=== PATIENT | female | born 1975 | race Caucasian/White ===

== ENCOUNTER 2019-07-04 13:38 | Emergency (ER) | payer OTHER ==
[2019-07-04 16:04] LABS: Absolute Lymphocytes (CBC) 1.4 K/uL (0.7-4.9); Basophils % 0.3 % (0-1.3); Hematocrit 32.7 % (36.0-45.0); Lymphocytes % 23.1 % (15.3-44.8); MPV 8.1 fL (7.6-11.3); RBC Red Blood Cell Count 4.23 M/uL (3.86-4.86)
--- NOTE | 2019-07-04 16:27 | RAD REPORT ---
EXAM DESCRIPTION: RAD - Chest Pa And Lat (2 Views) - 07/04/2019 2:41 pm CLINICAL HISTORY: COUGH, fever COMPARISON: None. TECHNIQUE: PA and lateral views of the chest were obtained. FINDINGS: The lungs are clear. Left subclavian Port-A-Cath in place. Heart size is normal and centr al vasculature is within normal limits. No pleural effusion or pneumothorax seen. No acute bony fin ding noted. No aortic abnormality. IMPRESSION: No acute cardiopulmonary process.
[2019-07-04 16:28] LABS: ALT/SGPT 16 U/L (12-78); AST/SGOT 15 U/L (15-37); Albumin 3.2 g/dL (3.4-5.0); Alkaline Phosphatase 67 U/L (45-117); BUN Blood Urea Nitrogen 5 mg/dL (7-18); Bicarbonate 29 mmol/L (21-32); Bilirubin Direct < 0.1 mg/dL (0-0.2); Bilirubin Total 0.2 mg/dL (0.2-1.0); Glucose Level 86 mg/dL (74-106); Lipase 118 U/L (73-393); Potassium 3.9 mmol/L (3.5-5.1); Protein, Total 7.1 g/dL (6.4-8.2); Sodium Level 142 mmol/L (136-145)
--- NOTE | 2019-07-04 16:44 | RAD REPORT ---
EXAM DESCRIPTION: RAD - Abdomen 1 View (KUB) - 07/04/2019 4:35 pm CLINICAL HISTORY: rule out bowel obstruction Cough, fever COMPARISON: No comparisons FINDINGS: Bowel gas pattern is non-specific. No obstruction, free air or pneumatosis. No suspicious calcifications. No significant bony findings IMPRESSION: Negative KUB examination.
--- NOTE | 2019-07-04 17:14 | EDPHYS ---
Physician Documentation [facility] Name: Cheyenne Christie Age: 43 yrs Sex: Female : 1975 Arrival Date: 07/04/2019 Time: 13:40 Bed 23 Private MD: ED Physician Delmar Nunez HPI: 07/04 15:42 This 43 yrs old Female presents to ER via Ambulatory with complaints of jmm Cough, Headache, L Side Pain. 15:42 The patient or guardian reports cough. Onset: The symptoms/episode began/occurred jmm gradually, 4 day(s) ago. Modifying factors: The symptoms are alleviated by nothing, the symptoms are aggravated by coughing. This is a 43 year old female with a history of bowel obstruction that presents to the ED with complaints of lower abdominal pain beginning yesterday. patient was diagnosed with a URI this past Friday and is concerned she may have an injury to her abdominal wall or have a bowel obstruction. Denies vomiting or change in bowels. . 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 - Social history:: Smoking status: Patient/guardian denies using tobacco. - Ebola Screening: : Patient denies travel to an Ebola-affected area in the 21 days before illness onset. ROS: 15:42 Constitutional: Negative for fever, chills, and weight loss, Cardiovascular: Negative jmm for chest pain, palpitations, and edema. 15:42 Respiratory: Positive for cough. 15:42 Abdomen/GI: Positive for abdominal pain. 15:42 All other systems are negative. Exam: 15:42 Constitutional: This is a well developed, well nourished patient who is awake, alert, jmm and in no acute distress. Head/Face: atraumatic. Eyes: EOMI, no conjunctival erythema appreciated ENT: Moist Mucus Membranes Neck: Trachea midline, Supple Chest/axilla: Normal chest wall appearance and motion. Cardiovascular: Regular rate and rhythm. No edema appreciated Respiratory: Normal respirations, no respiratory distress appreciated 15:42 Abdomen/GI: Inspection: abdomen appears normal, Bowel sounds: normal, Palpation: soft, moderate abdominal tenderness, in the left lower quadrant. 15:42 Back: ROM is normal. 15:42 Musculoskeletal/extremity: ROM: intact in all extremities. 15:42 Skin: Appearance: Color: normal in color. 15:42 Neuro: Orientation: is normal, Mentation: is normal, Memory: is normal. 15:42 Psych: Behavior/mood is pleasant, cooperative. Vital Signs: 14:21 BP 108 / 73; Pulse 79; Resp 16; Temp 98.7; Pulse Ox 98% on R/A; Weight 70.31 kg (R); aj1 Height 5 ft. 5 in. (165.10 cm) (R); 15:25 BP 107 / 66; Pulse 69; Resp 18; Pulse Ox 100% on R/A; mg2 17:00 BP 110 / 77; Pulse 71; Resp 18; Temp 98.2; Pulse Ox 100% on R/A; mg2 18:15 BP 109 / 71; Pulse 70; Resp 18; Temp 98.5; Pulse Ox 100% on R/A; Pain 0/10; mg2 14:21 Body Mass Index 25.79 (70.31 kg, 165.10 cm) aj1 MDM: 15:35 Patient medically screened. go 17:12 Data reviewed: vital signs, nurses notes. Counseling: I had a detailed discussion with shruti the patient and/or guardian regarding: the historical points, exam findings, and any diagnostic results supporting the discharge/admit diagnosis, radiology results, the need for outpatient follow up, to return to the emergency department if symptoms worsen or persist or if there are any questions or concerns that arise at home. ED course: Patient is alert and non toxic in appearance in the ED. Patient declined CT imaging. Patient was given strict return precautions. patient understood and agrees with the plan of care. . 07/04 15:41 Order name: Basic Metabolic Panel; Complete Time: 16:33 [facility] 07/04 15:41 Order name: CBC with Diff; Complete Time: 16:12 [facility] 07/04 14:23 Order name: Chest Pa And Lat (2 Views) XRAY; Complete Time: 16:33 [facility] 07/04 15:41 Order name: Creatinine for Radiology; Complete Time: 16:26 [facility] 07/04 15:41 Order name: Hepatic Function; Complete Time: 16:33 [facility] 07/04 15:41 Order name: Lipase; Complete Time: 16:33 [facility] 07/04 15:41 Order name: IV Saline Lock; Complete Time: 15:57 [facility] 07/04 15:41 Order name: Labs collected and sent; Complete Time: 15:57 [facility] 07/04 15:41 Order name: Urine Dipstick-Ancillary (obtain specimen); Complete Time: 18:15 [facility] 07/04 16:10 Order name: Abdomen 1 View (KUB) XRAY; Complete Time: 16:48 [facility] Administered Medications: No medications were administered Disposition: 18:34 Co-signature as Attending Physician, Delmar Nunez MD. rn Disposition: 07/04/19 17:13 Discharged to Home. Impression: Acute upper respiratory infection, unspecified, Generalized abdominal pain. - Condition is Stable. - Discharge Instructions: Abdominal Pain, Adult, Upper Respiratory Infection, Adult. - Medication Reconciliation Form, Thank You Letter, Antibiotic Education, Prescription Opioid Use form. - Follow up: Private Physician; When: 2 - 3 days; Reason: Recheck today's complaints, Continuance of care, Re-evaluation by your physician. Signatures: Dispatcher [employer] EDVA Kimmie Barker RN RN aj1 Freddie Dennison PA PA [facility] Delmar Nunez MD MD rn Gardose, Michele, RN RN mg2 Corrections: (The following items were deleted from the chart) 16:39 15:42 Abdomen Pelvis W Con+CT.RAD.BRZ ordered. [facility] 18:17 17:13 07/04/2019 17:13 Discharged to Home. Impression: Acute upper respiratory mg2 infection, unspecified; Generalized abdominal pain. Condition is Stable. Forms are Medication Reconciliation Form, Thank You Letter, Antibiotic Education, Prescription Opioid Use. Follow up: Private Physician; When: 2 - 3 days; Reason: Recheck today's complaints, Continuance of care, Re-evaluation by your physician. [facility]
--- NOTE | 2019-07-04 17:14 | ER ---
Nurse's Notes [facility] Name: Cheyenne Christie Age: 43 yrs Sex: Female : 1975 Arrival Date: 07/04/2019 Time: 13:40 Bed 23 Private MD: Diagnosis: Acute upper respiratory infection, unspecified;Generalized abdominal pain Presentation: 07/04 14:17 Presenting complaint: Patient states: "I went to the doctor on Friday and he said aj1 that I had a respiratory infection, and now everytime I cough I feel like something is stabbing me in the side" Patient reports productive cough, fever. Denies N/V/D. Patient reports that she was checked for both strep and flu at her doctors office and they were both negative. Transition of care: patient was not received from another setting of care. Onset of symptoms was 2018. Risk Assessment: Do you want to hurt yourself or someone else? Patient reports no desire to harm self or others. Initial Sepsis Screen: Does the patient meet any 2 criteria? No. Patient's initial sepsis screen is negative. Does the patient have a suspected source of infection? Yes: Productive cough/pneumonia. Care prior to arrival: None. 14:17 Method Of Arrival: Ambulatory [facility] 14:17 Acuity: WANDER 4 aj1 Triage Assessment: 14:21 Headache History: The patient has had previous headaches and this one is similar to aj1 previous episodes. General: Appears in no apparent distress. uncomfortable, Behavior is calm, cooperative, appropriate for age. Pain: Complains of pain in forehead Pain currently is 2 out of 10 on a pain scale. at worst was 10 out of 10 on a pain scale. Pain began one week ago Is intermittent, Also complains of no other associated symptoms. Neuro: Level of Consciousness is awake, alert, obeys commands, Oriented to person, place, time, situation, Reports headache. Cardiovascular: Patient's skin is warm and dry. Respiratory: Reports cough that is persistent Airway is patent Respiratory effort is even, unlabored, Respiratory pattern is regular, symmetrical. 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 - Social history:: Smoking status: Patient/guardian denies using tobacco. - Ebola Screening: : Patient denies travel to an Ebola-affected area in the 21 days before illness onset. Screenin:22 Abuse screen: Denies threats or abuse. Denies injuries from another. Nutritional mg2 screening: No deficits noted. Tuberculosis screening: No symptoms or risk factors identified. Fall Risk None identified. Assessment: 15:22 General: Appears in no apparent distress. comfortable, Behavior is calm, cooperative. mg2 Pain: Complains of pain in abdomen Pain does not radiate. Pain currently is 5 out of 10 on a pain scale. Quality of pain is described as aching, Pain began gradually, Is intermittent. Neuro: Level of Consciousness is awake, alert, obeys commands, Oriented to person, place, time, situation. Neuro: Reports headache. Cardiovascular: Capillary refill < 3 seconds Patient's skin is warm and dry. Respiratory: Reports cough that is Airway is patent Respiratory effort is even, unlabored, Respiratory pattern is regular, symmetrical. GI: Reports lower abdominal pain. : No signs and/or symptoms were reported regarding the genitourinary system. EENT: No signs and/or symptoms were reported regarding the EENT system. Derm: Skin is intact, is healthy with good turgor, Skin is pink, warm \\T\\ dry. normal. Musculoskeletal: Circulation, motion, and sensation intact. Capillary refill < 3 seconds. 16:15 Reassessment: patient refused ct scan because its expensive. provider informed. mg2 Vital Signs: 14:21 BP 108 / 73; Pulse 79; Resp 16; Temp 98.7; Pulse Ox 98% on R/A; Weight 70.31 kg (R); aj1 Height 5 ft. 5 in. (165.10 cm) (R); 15:25 BP 107 / 66; Pulse 69; Resp 18; Pulse Ox 100% on R/A; mg2 17:00 BP 110 / 77; Pulse 71; Resp 18; Temp 98.2; Pulse Ox 100% on R/A; mg2 18:15 BP 109 / 71; Pulse 70; Resp 18; Temp 98.5; Pulse Ox 100% on R/A; Pain 0/10; mg2 14:21 Body Mass Index 25.79 (70.31 kg, 165.10 cm) [facility] ED Course: 13:40 Patient arrived in ED. as 14:19 Triage completed. aj1 14:23 Arm band placed on Patient placed in waiting room. aj1 14:39 Chest Pa And Lat (2 Views) XRAY In Process Unspecified. EDMS 15:08 Damir Corcoran, RN is Primary Nurse. mg2 15:21 Freddie Dennison PA is PHCP. m 15:21 Delmar Nunez MD is Attending Physician. jmm 15:24 Patient has correct armband on for positive identification. Placed in gown. Call light mg2 in reach. Side rails up X 1. Pulse ox on. NIBP on. 15:24 No provider procedures requiring assistance completed. mg2 15:57 Initial lab(s) drawn, by me, sent to lab. Inserted saline lock: 20 gauge in right lt1 antecubital area, using aseptic technique. 16:36 Abdomen 1 View (KUB) XRAY In Process Unspecified. EDMS 18:16 IV discontinued, intact, bleeding controlled, No redness/swelling at site. Pressure mg2 dressing applied. Administered Medications: No medications were administered Outcome: 17:13 Discharge ordered by MD. [facility] 18:16 Discharged to home ambulatory. mg2 18:16 Condition: stable 18:16 Discharge instructions given to patient, Instructed on discharge instructions, follow up and referral plans. Demonstrated understanding of instructions, follow-up care. 18:17 Patient left the ED. mg2 Signatures: Dispatcher [employer] EDMS Kimmie Barker RN RN aj Freddie Dennison PA PA jmm Martinez, Amelia as Damir Corcoran, MITZY RN [facility] [place] Nighat Magana [facility]
[2019-07-04 18:44] LABS: Urine Blood NEGATIVE (NEG); Urine Glucose NEGATIVE (NEG); Urine Protein NEGATIVE (NEG); Urine Specific Gravity 1.025 (1.005-1.030)
[2019-07-04 18:58] VITALS: O2SAT 100
[2019-07-04 19:01] VITALS: BP 109/71; TEMP 98.5
== END 2019-07-04 18:17 | disposition home or self-care (01) ==
LOC: ER 13:38
DX: J06.9 Acute upper respiratory infection, unspecified (principal); R10.84 Generalized abdominal pain; Z88.2 Allergy status to sulfonamides; F90.9 Attention-deficit hyperactivity disorder, unspecified type; F41.9 Anxiety disorder, unspecified
CPT/HCPCS: 36415; 71046; 74018; 80048; 80076; 81003; 81025; 83690; 85025; 99284

== ENCOUNTER 2019-09-13 09:39 | Observation (INO) | payer OTHER ==
--- OUTSIDE RECORDS SUMMARY | 2019-09-13 09:41 | XMS REPORT ---
:1975 Author Organization e[employer] Care Team Providers Name Role Phone Shin Yu Provider Role Unavailable Allergies, Adverse Reactions, Alerts Substance Reaction Event Type Sulfa swelling Drug Allergy Neosporin burn Drug Allergy Problems Problem Type Condition Code Onset Dates Condition Status Assessment Anemia, unspecified type D64.9 Active Assessment Depression with anxiety F41.8 Active Assessment Hypothyroidism, unspecified type E03.9 Active Assessment Encounter for general adult medical Z00.00 Active examination without abnormal findings Assessment Psychophysiological insomnia F51.04 Active Assessment 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), predominantly inattentive type Assessment Chronic iron deficiency anemia D50.9 Active Problem Psychophysiological insomnia F51.04 Active Problem Anemia, unspecified type D64.9 Active Problem Depression with anxiety F41.8 Active Problem Chronic iron deficiency anemia D50.9 Active Problem Hypothyroidism, unspecified type E03.9 Active Problem 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), predominantly inattentive type Medications Medication Code Code Instructions Start End Status Dosage System Date Date Iron Sucrose [facility] [address]-63 20 MG/ML Active as Intravenous directed Trazodone HCl [facility] 13154521223 50 MG Orally March Active 1 tablet Once a day 17, at bedtime 2018 as needed Fluoxetine HCl [facility] 64625130878 40 MG Orally Active 1 capsule Once a day Adderall [facility] [address]-19 20 MG Orally Active 2 tablet Once a day Deferasirox [facility] 70425380622 125 MG Orally April 14Sep Active as bid 2018 Levothyroxine ND 83909336018 75 MCG Orally Active 1 tablet Sodium Once a day on an empty stomach in the morning HydrOXYzine HCl [facility] [address]-00 25 MG Orally Active 1 tablet Once a day as needed Belsomra ND 60738255153 10 MG Orally April 14, Active 1 tablet Once a day 2018 at bedtime as needed Results No Known Results Summary Purpose eClinicalWorks Submission
--- OUTSIDE RECORDS SUMMARY | 2019-09-13 09:41 | XMS REPORT ---
:1975 Author Organization [employer] Care Team Providers Name Role Phone Shin Yu Provider Role Unavailable Allergies, Adverse Reactions, Alerts Substance Reaction Event Type Sulfa swelling Drug Allergy Neosporin burn Drug Allergy Problems Problem Type Condition Code Onset Dates Condition Status Assessment Hypothyroidism, unspecified type E03.9 Active Assessment Attention deficit hyperactivity F90.0 Active [...] Start End Status Dosage System Date Date Fluoxetine HCl [facility] 15447696407 40 MG Orally Active 1 capsule Once a day Iron Sucrose [facility] [address]-93 20 MG/ML Apr Active as Intravenous 2018 Belsomra [facility] 02451921881 10 MG Orally April 14, Active 1 tablet Once a day 2018 at bedtime as needed Deferasirox ND 78413389919 125 MG Orally April 14Sep Active as bid 2018 HydrOXYzine HCl [facility] [address]-77 25 MG Orally Active 1 tablet Once a day as needed Ferrous ND 0 246 (28 Fe) MG May 06, Active as Gluconate Iron Orally 2018 directed Levothyroxine [facility] 52601270135 75 MCG Orally Active 1 tablet Sodium Once a day on an empty stomach in the morning Adderall [facility] [address]-12 20 MG Orally Active 2 tablet Once a day Results No Known Results Summary Purpose eClinicalWorks Submission
--- OUTSIDE RECORDS SUMMARY | 2019-09-13 09:41 | XMS REPORT ---
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
[2019-09-13 11:59] LABS: Absolute Lymphocytes (CBC) 1.4 K/uL (0.7-4.9); Basophils % 1.9 % (0-1.3); Lymphocytes % 36.5 % (15.3-44.8); MPV 8.1 fL (7.6-11.3); Protime INR 1.01; RBC Red Blood Cell Count 3.51 M/uL (3.86-4.86)
--- NOTE | 2019-09-13 12:24 | RAD REPORT ---
EXAM DESCRIPTION: Amy Single View09/13/2019 11:53 am CLINICAL HISTORY: cough COMPARISON: June 2019 FINDINGS: The lungs appear clear of acute infiltrate. The heart is normal size IMPRESSION: No acute abnormalities displayed
--- NOTE | 2019-09-13 12:28 | ER ---
Nurse's Notes [facility] Name: Cheyenne Christie Age: 43 yrs Sex: Female : 1975 Arrival Date: 09/13/2019 Time: 09:42 Bed 16 Private MD: Diagnosis: Anemia, unspecified;Gastrointestinal hemorrhage, unspecified-guaiactrace positive;Weakness;Dyspnea Presentation: 09/13 09:58 Presenting complaint: Patient states: was told to come to the ER for iron infusion by em her PA, reports shortness of breath and headache, denies chest pain, reports history of chronic anemia, also reports being allergic to an iron medication that made her joints swell up but does not remember the medication name. Transition of care: patient was not received from another setting of care. Onset of symptoms was September 13, 2019. Risk Assessment: Do you want to hurt yourself or someone else? Patient reports no desire to harm self or others. Initial Sepsis Screen: Does the patient meet any 2 criteria? No. Patient's initial sepsis screen is negative. Does the patient have a suspected source of infection? No. Patient's initial sepsis screen is negative. Care prior to arrival: None. 09:58 Method Of Arrival: Ambulatory em 10:04 Acuity: WANDER 3 ss Historical: - Allergies: 10:03 Neosporin Andrea To Go; em 10:03 Sulfa (Sulfonamide Antibiotics); em 13:38 sodium ferric gluconat-sucrose (swollen joints); em - PMHx: 10:03 ADD/ADHD; Anxiety; Depression; Anemia; em - PSHx: 10:03 colon resection; right wrist surgery; em - Immunization history:: Adult Immunizations up to date. - Social history:: Smoking status: Patient/guardian denies using tobacco. - Ebola Screening: : Patient negative for fever greater than or equal to 101.5 degrees Fahrenheit, and additional compatible Ebola Virus Disease symptoms Patient denies exposure to infectious person Patient denies travel to an Ebola-affected area in the 21 days before illness onset No symptoms or risks identified at this time. Screenin:58 Abuse screen: Denies threats or abuse. Nutritional screening: No deficits noted. em Tuberculosis screening: No symptoms or risk factors identified. Fall Risk None identified. Assessment: 09:58 General: Appears in no apparent distress. comfortable, Behavior is calm, cooperative, em Denies fever. Pain: Denies pain. Neuro: Level of Consciousness is awake, alert, obeys commands, Oriented to person, place, time, situation, Appropriate for age. Cardiovascular: Denies chest pain, Capillary refill < 3 seconds Patient's skin is warm and dry. Respiratory: Reports shortness of breath on exertion Airway is patent Respiratory effort is even, unlabored, Respiratory pattern is regular, symmetrical. Derm: Skin is intact, Skin is dry, Skin is pale. Musculoskeletal: Capillary refill < 3 seconds, Range of motion: intact in all extremities. 10:00 General: The previous assessment is accurate, call light remains within reach.. ss 11:00 Reassessment: Patient appears in no apparent distress at this time. respirations even em and unlabored, skin pale warm and dry, denies pain at this time. 12:47 Reassessment: Patient appears in no apparent distress at this time. Patient and/or em family updated on plan of care and expected duration. Pain level reassessed. Patient states symptoms have not improved. 14:59 Reassessment: Patient and/or family updated on plan of care and expected duration. Pain em level reassessed. hospitalist at bedside, respirations even and unlabored, skin pale warm and dry, denies pain at this time. 16:16 Reassessment: Patient appears in no apparent distress at this time. Patient and/or em family updated on plan of care and expected duration. Pain level reassessed. respirations even and unlabored, skin pale warm and dry, denies pain at this time. 17:20 Reassessment: Patient appears in no apparent distress at this time. Patient and/or em family updated on plan of care and expected duration. Pain level reassessed. wheeled to floor Patient denies pain at this time. Vital Signs: 10:03 BP 124 / 72; Pulse 80; Resp 18; Temp 98.4(O); Pulse Ox 100% on R/A; Weight 70.31 kg; em Height 5 ft. 5 in. (165.10 cm); Pain 0/10; 11:00 BP 125 / 60; Pulse 78; Resp 18; Pulse Ox 99% on R/A; em 13:35 BP 100 / 57; Pulse 73; Resp 18; Pulse Ox 100% on R/A; Pain 0/10; em 15:00 BP 107 / 64; Pulse 76; Resp 16; Pulse Ox 100% on R/A; Pain 0/10; em 17:17 BP 101 / 61; Pulse 81; Resp 18; Pulse Ox 99% on R/A; Pain 0/10; em 10:03 Body Mass Index 25.79 (70.31 kg, 165.10 cm) em ED Course: 09:42 Patient arrived in ED. mr 09:58 DandreChandan LVN is Primary Nurse. em 09:58 Patient has correct armband on for positive identification. Placed in gown. Bed in low em position. Call light in reach. Pulse ox on. NIBP on. 10:03 Arm band placed on. em 10:04 Triage completed. ss 10:10 Amado Drummond MD is Attending Physician. keke 11:26 EKG done, by polysomnographic tech. reviewed by Amado Drummond MD. at1 11:42 Accessed Port-a-Cath. Blood collected. using accessed w/ # 20 Silva needle, ,sterile ss technique, per hospital protocol. Clean \T\ dry. Good blood return. Flushes easily. Patient maintains SpO2 saturation greater than 95% on room air. 12:27 Naresh Zhou is Hospitalizing Provider. [facility] 16:27 Urine collected: clean catch specimen, clear. 3 17:18 No provider procedures requiring assistance completed. Patient admitted, IV remains in em place. Administered Medications: 13:11 Drug: ProTONIX 40 mg Route: IVP; Site: Port-a-cath; 13:31 Follow up: Response: No adverse reaction em Outcome: 12:28 Decision to Hospitalize by Provider. keke 17:18 Admitted to Med/surg accompanied by tech, family with patient, via wheelchair, room em 214, with chart, Report called to MITZY Snowden 17:18 Condition: good 17:18 Instructed on the need for admit, Demonstrated understanding of instructions. 17:21 Patient left the ED. em Signatures: Amado Drummond MD MD cha Rivera, Mary mr AmosChandan, VICE PRESIDENT & GENERAL MANAGER [employer] [place] VICE PRESIDENT & GENERAL MANAGER [employer] [place] [employer] em Lubna Chavarria RN RN Julia Puga, radiation engineer EKG Tat1 Maeve Aguirre 3
--- NOTE | 2019-09-13 12:29 | EDPHYS ---
Physician Documentation [facility] Name: Cheyenne Christie Age: 43 yrs Sex: Female : 1975 Arrival Date: 09/13/2019 Time: 09:42 Bed 16 Private MD: ED Physician Amado Drummond HPI: 09/13 12:25 This 43 yrs old Female presents to ER via Ambulatory with complaints of keke Abnormal Lab Results. 12:25 The patient presents to the emergency department unk. Onset: The symptoms/episode keke began/occurred 5 day(s) ago. Historical: - Allergies: 10:03 Neosporin Andrea To Go; em 10:03 Sulfa (Sulfonamide Antibiotics); em 13:38 sodium ferric gluconat-sucrose (swollen joints); em - PMHx: 10:03 ADD/ADHD; Anxiety; Depression; Anemia; em - PSHx: 10:03 colon resection; right wrist surgery; em - Immunization history:: Adult Immunizations up to date. - Social history:: Smoking status: Patient/guardian denies using tobacco. - Ebola Screening: : Patient negative for fever greater than or equal to 101.5 degrees Fahrenheit, and additional compatible Ebola Virus Disease symptoms Patient denies exposure to infectious person Patient denies travel to an Ebola-affected area in the 21 days before illness onset No symptoms or risks identified at this time. ROS: 12:25 Constitutional: Negative for fever, chills, and weight loss, Eyes: Negative for injury, keke pain, redness, and discharge, ENT: Negative for injury, pain, and discharge, Neck: Negative for injury, pain, and swelling, Cardiovascular: Negative for chest pain, palpitations, and edema, Respiratory: Negative for shortness of breath, cough, wheezing, and pleuritic chest pain, Abdomen/GI: Negative for abdominal pain, nausea, vomiting, diarrhea, and constipation, Back: Negative for injury and pain, : Negative for injury, bleeding, discharge, and swelling, MS/Extremity: Negative for injury and deformity, Neuro: Negative for headache, weakness, numbness, tingling, and seizure, Psych: Negative for depression, anxiety, suicide ideation, homicidal ideation, and hallucinations, Allergy/Immunology: Negative for hives, rash, and allergies, Endocrine: Negative for neck swelling, polydipsia, polyuria, polyphagia, and marked weight changes, Hematologic/Lymphatic: Negative for swollen nodes, abnormal bleeding, and unusual bruising. 12:25 Skin: Positive for pallor. Exam: 12:25 Constitutional: This is a well developed, well nourished patient who is awake, alert, keke and in no acute distress. Head/Face: Normocephalic, atraumatic. Eyes: Pupils equal round and reactive to light, extra-ocular motions intact. Lids and lashes normal. Conjunctiva and sclera are non-icteric and not injected. Cornea within normal limits. Periorbital areas with no swelling, redness, or edema. ENT: Nares patent. No nasal discharge, no septal abnormalities noted. Tympanic membranes are normal and external auditory canals are clear. Oropharynx with no redness, swelling, or masses, exudates, or evidence of obstruction, uvula midline. Mucous membranes moist. Neck: Trachea midline, no thyromegaly or masses palpated, and no cervical lymphadenopathy. Supple, full range of motion without nuchal rigidity, or vertebral point tenderness. No Meningismus. Chest/axilla: Normal chest wall appearance and motion. Nontender with no deformity. No lesions are appreciated. Cardiovascular: Regular rate and rhythm with a normal S1 and S2. No gallops, murmurs, or rubs. Normal PMI, no JVD. No pulse deficits. Respiratory: Lungs have equal breath sounds bilaterally, clear to auscultation and percussion. No rales, rhonchi or wheezes noted. No increased work of breathing, no retractions or nasal flaring. Abdomen/GI: Soft, non-tender, with normal bowel sounds. No distension or tympany. No guarding or rebound. No evidence of tenderness throughout. Back: No spinal tenderness. No costovertebral tenderness. Full range of motion. Skin: Warm, dry with normal turgor. Normal color with no rashes, no lesions, and no evidence of cellulitis. MS/ Extremity: Pulses equal, no cyanosis. Neurovascular intact. Full, normal range of motion. Neuro: Awake and alert, GCS 15, oriented to person, place, time, and situation. Cranial nerves II-XII grossly intact. Motor strength 5/5 in all extremities. Sensory grossly intact. Cerebellar exam normal. Normal gait. Psych: Awake, alert, with orientation to person, place and time. Behavior, mood, and affect are within normal limits. 12:25 Abdomen/GI: Rectal exam: rectal tone normal, Stool: guaiac positive, hemorrhoid(s), are not appreciated, mass, is not appreciated, swelling, is not appreciated, tenderness, is not appreciated, Liver: no appreciated palpable abnormalities, Hernia: not appreciated. Vital Signs: 10:03 BP 124 / 72; Pulse 80; Resp 18; Temp 98.4(O); Pulse Ox 100% on R/A; Weight 70.31 kg; em Height 5 ft. 5 in. (165.10 cm); Pain 0/10; 11:00 BP 125 / 60; Pulse 78; Resp 18; Pulse Ox 99% on R/A; em 13:35 BP 100 / 57; Pulse 73; Resp 18; Pulse Ox 100% on R/A; Pain 0/10; em 15:00 BP 107 / 64; Pulse 76; Resp 16; Pulse Ox 100% on R/A; Pain 0/10; em 17:17 BP 101 / 61; Pulse 81; Resp 18; Pulse Ox 99% on R/A; Pain 0/10; em 10:03 Body Mass Index 25.79 (70.31 kg, 165.10 cm) em MDM: 10:10 Patient medically screened. [facility] 12:25 Data reviewed: vital signs, nurses notes, lab test result(s), EKG, radiologic studies, keke plain films. 09/13 10:56 Order name: Basic Metabolic Panel [facility] 09/13 10:56 Order name: CBC with Diff [facility] 09/13 10:56 Order name: LFT's [facility] 09/13 10:56 Order name: Magnesium [facility] 09/13 10:56 Order name: NT PRO-BNP [facility] 09/13 10:56 Order name: PT-INR [facility] 09/13 10:56 Order name: Troponin (emerg Dept Use Only) [facility] 09/13 10:56 Order name: Type And Screen [facility] 09/13 10:56 Order name: Retic Count [facility] 09/13 10:56 Order name: Iron Level [facility] 09/13 10:56 Order name: Ferritin [facility] 09/13 10:56 Order name: Folic Acid,Serum (folate) [facility] 09/13 10:56 Order name: TIBC [facility] 09/13 10:56 Order name: B12 [facility] 09/13 12:02 Order name: CBC with Automated Diff; Complete Time: 12:12 [facility] 09/13 12:02 Order name: Retic Count; Complete Time: 12:12 [facility] 09/13 12:04 Order name: Protime (+INR); Complete Time: 12:12 [facility] 09/13 13:22 Order name: Type and Screen [facility] 09/13 13:27 Order name: Basic Metabolic Panel; Complete Time: 14:03 [facility] 09/13 13:27 Order name: Liver (Hepatic) Function; Complete Time: 14:03 [facility] 09/13 13:27 Order name: Troponin (Emerg Dept Use Only); Complete Time: 14:03 [facility] 09/13 13:27 Order name: NT PRO-BNP; Complete Time: 14:03 [facility] 09/13 13:27 Order name: Magnesium; Complete Time: 14:03 [facility] 09/13 13:27 Order name: Transferrin Sat/Iron Binding; Complete Time: 14:03 [facility] 09/13 13:27 Order name: Ferritin; Complete Time: 14:03 [facility] 09/13 13:27 Order name: Folic Acid, (Folate); Complete Time: 14:03 [facility] 09/13 13:27 Order name: Vitamin B12 Level; Complete Time: 14:03 [facility] 09/13 14:14 Order name: Bb Add On 09/13 16:31 Order name: Urine Dipstick--Ancillary (enter results) 09/13 16:31 Order name: Urine --Ancillary (enter results) 09/13 10:56 Order name: XRAY Chest (1 view) [facility] 09/13 10:56 Order name: EKG; Complete Time: 10:59 [facility] 09/13 10:56 Order name: Cardiac monitoring; Complete Time: 11:45 [facility] 09/13 10:56 Order name: EKG - Nurse/Tech; Complete Time: 11:43 [facility] 09/13 10:56 Order name: IV Saline Lock; Complete Time: 11:43 [facility] 09/13 10:56 Order name: Labs collected and sent; Complete Time: 11:45 [facility] 09/13 10:56 Order name: O2 Per Protocol; Complete Time: 11:43 [facility] 09/13 10:56 Order name: O2 Sat Monitoring; Complete Time: 11:43 [facility] 09/13 10:56 Order name: Urine Dipstick-Ancillary (obtain specimen); Complete Time: 16:27 keke 09/13 12:28 Order name: RAD; Complete Time: 14:03 EDMS Administered Medications: 13:11 Drug: ProTONIX 40 mg Route: IVP; Site: Port-a-cath; 13:31 Follow up: Response: No adverse reaction em Disposition: 09/13/19 12:28 Hospitalization ordered by Naresh Zhou for Inpatient Admission. Preliminary diagnosis are Anemia, unspecified, Gastrointestinal hemorrhage, unspecified - guaiactrace positive, Weakness, Dyspnea. - Bed requested for Telemetry/MedSurg (Inpatient). - Status is Inpatient Admission. em - Condition is Stable. - Problem is new. - Symptoms have improved. UTI on Admission? No Signatures: Dispatcher [employer] EDAmado Vega MD MD cha Munoz, Edgar, PROVIDER NETWORK MGR PROVIDER NETWORK MGR em Lubna Chavarria RN RN ss Aguilar, Jose, RN RN ja1 Corrections: (The following items were deleted from the chart) 12:29 12:28 Hospitalization Ordered by Naresh Zhou for Inpatient Admission. Preliminary [facility] diagnosis is Anemia, unspecified; Gastrointestinal hemorrhage, unspecified - guaiactrace positive. Bed requested for Telemetry/MedSurg (Inpatient). Status is Inpatient Admission. Condition is Stable. Problem is new. Symptoms have improved. UTI on Admission? No. keke 16:24 12:29 09/13/2019 12:28 Hospitalization Ordered by Naresh Zhou for Inpatient ja1 Admission. Preliminary diagnosis is Anemia, unspecified; Gastrointestinal hemorrhage, unspecified - guaiactrace positive; Weakness; Dyspnea. Bed requested for Telemetry/MedSurg (Inpatient). Status is Inpatient Admission. Condition is Stable. Problem is new. Symptoms have improved. UTI on Admission? No. keke 17:21 16:24 09/13/2019 12:28 Hospitalization Ordered by Naresh Zhou for Inpatient em Admission. Preliminary diagnosis is Anemia, unspecified; Gastrointestinal hemorrhage, unspecified - guaiactrace positive; Weakness; Dyspnea. Bed requested for Telemetry/MedSurg (Inpatient). Status is Inpatient Admission. Condition is Stable. Problem is new. Symptoms have improved. UTI on Admission? No. [email or web address]
[2019-09-13] MEDS ORDERED: SOD FERRIC GLUC COMPLX/SUCROSE 125 MG in NA CHLORIDE 0.9% 100 ML IV ONE (12:30)
[2019-09-13] MEDS ORDERED: PANTOPRAZOLE 40 MG INJ ONE (12:55)
[2019-09-13 13:26] LABS: ALT/SGPT 35 U/L (12-78); AST/SGOT 20 U/L (15-37); Albumin 3.1 g/dL (3.4-5.0); Alkaline Phosphatase 55 U/L (45-117); BUN Blood Urea Nitrogen 8 mg/dL (7-18); Bicarbonate 24 mmol/L (21-32); Bilirubin Direct < 0.1 mg/dL (0-0.2); Bilirubin Total 0.2 mg/dL (0.2-1.0); Ferritin 4.6 ng/mL (8-388); Folic Acid, (Folate) 4.9 ng/mL (3.1-17.5); Glucose Level 101 mg/dL (74-106); Magnesium 2.3 mg/dL (1.8-2.4); NT PRO-BNP 132 pg/mL (<125); Potassium 3.6 mmol/L (3.5-5.1); Protein, Total 6.4 g/dL (6.4-8.2); Sodium Level 141 mmol/L (136-145); Transferrin 267 mg/dL (200-360); Troponin (Emerg Dept Use Only) < 0.02 ng/mL (0.0-0.045)
[2019-09-13] MEDS ORDERED: NA CHLORIDE 0.9% 250 ML ONE (14:44)
--- NOTE | 2019-09-13 16:02 | EKG ---
Test Date: 2019-09-13 Test Time: 11:23:26 Motor Rebuilder: LUIS MEASUREMENT RESULTS: Intervals: Rate: 76 TX: 108 QRSD: 82 QT: 394 QTc: 443 [place]: P: 46 TX: 108 QRS: 54 T: 43 INTERPRETIVE STATEMENTS: Sinus rhythm with short [place] Otherwise normal ECG No previous ECG available for comparison Electronically Signed On 09-13-19 16:01:25 ADMISSIONS RN by Sreedhar Hurtado
[2019-09-13] MEDS ORDERED: ONDANSETRON 4 MG/2 ML VIAL IV PRN (17:22)
[2019-09-13] MEDS ORDERED: DIPHENHYDRAMINE 50 MG/ML VIAL IV ONE (17:22)
[2019-09-13] MEDS ORDERED: HYDROCORTISONE SUC 100 MG INJ IV ONE (17:22)
[2019-09-13] MEDS ORDERED: NA CHLORIDE 0.9% 250 ML IV SCH (17:22)
[2019-09-13] MEDS: NA CHLORIDE 0.9% 1,000 ML IV SCH (17:31)
[2019-09-13 18:02] VITALS: BMI 25.7
--- NOTE | 2019-09-13 18:12 | P.HP ---
Certification for Inpatient Patient admitted to: Observation With expected LOS: <2 Midnights Practitioner: I am a practitioner with admitting privileges, knowledge of patient current condition, hospital course, and medical plan of care. Services: Services provided to patient in accordance with Admission requirements found in Title 42 Section 412.3 of the Code of Federal Regulations Patient History Date of Service: 09/13/19 Reason for admission: Low hemoglobin and iron level. History of Present Illness: 43-year-old woman with prior history of bowel resection, history of chronic iron deficiency anemia, anxiety and depression presented to emergency department with a complaint of generalized weakness, fatigue and dyspnea on exertion. Patient stated her primary care provider referred her to the emergency department due to low blood iron levels. She has received IV iron infusions in the past. She has a left port-A-cath in place for iron infusions. She stated she has allergies to several brands of IV iron but has tolerated Injectafer in the past. She reports occasional blood-stained stools. She was Hemoccult-positive in the ED. Her last colonoscopy was 1 year after her bowel resection which was 2011. She states that the cause for her iron deficiency anemia has not been identified. Patient is placed in observation for further treatment of symptomatic anemia. Allergies ferrous gluconate Allergy (Verified 09/13/19 17:49) Anaphylaxis Sulfa (Sulfonamide Antibiotics) Allergy (Verified 09/13/19 17:01) Itching/Hives/Rash neosporin Allergy (Uncoded 09/13/19 17:49) Rash sulfa Allergy (Uncoded 09/13/19 17:01) Itching/Hives/Rash Home Medications: Amphet Asp/Amphet/D-Amphet [Adderall 30 mg Tablet] 40 mg PO DAILY 09/13/19 Cyanocobalamin (Vitamin B-12) [Cyanocobalamin Injection] 1,000 mcg IJ SEECOM Fluoxetine HCl [Prozac*] 40 mg PO DAILY 09/13/19 Levothyroxine Sodium 25 mcg PO [id number] 09/13/19 Trazodone [Desyrel*] 50 mg PO BEDTIME PRN 09/13/19 hydrOXYzine HCL [Atarax] 3 tab PO BEDTIME PRN 09/13/19 Pantoprazole [Protonix Tab] 40 mg PO DAILY #30 tab 09/14/19 - Past Medical/Surgical History Has patient received pneumonia vaccine in the past: Yes Diabetic: No -: ADD -: Anxiety -: Depression -: Chronic Anemia -: Bowel Obstruction -: Colon Resection in 2010 -: Right wrist sx - Family History Mother -: Heart disease, Hypertension, Diabetes, Cancer, Other (see notes) Notes: Heart Stents; Ovarian Cancer - Social History Smoking Status: Never smoker Alcohol use: No CD- Drugs: No Caffeine use: Yes Place of Residence: Home Review of Systems Other: General: No fever, no malaise, no unintentional weight loss. Eyes: No eye discharge, Respiratory: No cough, no shortness of breath. CVS: No chest pain. GI: No abdominal pain, no nausea no vomit, no constipation, no diarrhea. Genitourinary: No dysuria, no urinary frequency, no incontinence, no hematuria. Musculoskeletal: No joint pains, or joint swelling, no gait instability. Neurology: No headache, no asymmetric, weakness, no problem with swallowing. Except as documented, all other systems reviewed and negative. Physical Examination - Vital Signs Temperature: 98.3 F Blood Pressure: 101/55 Pulse: 69 Respirations: 16 Pulse Ox (%): 100 - Physical Exam General: Alert, In no apparent distress, Oriented x3 HEENT: Normocephalic, PERRLA, Mucous membr. moist/pink Neck: Supple, JVD not distended Respiratory: Clear to auscultation bilaterally, Normal air movement Cardiovascular: No edema, Normal pulses, Regular rate/rhythm, Normal S1 S2 Capillary refill: <2 Seconds Gastrointestinal: Normal bowel sounds, Soft and benign, No tenderness Musculoskeletal: No swelling Integumentary: No rashes Neurological: Normal speech, Normal strength at 5/5 x4 extr - Studies Laboratory Data (last 24 hrs) 09/13/19 11:37: PT 11.9, INR 1.01 09/13/19 11:37: WBC 3.9 L D, Hgb 7.9 L*, Hct 25.0 L, Plt Count 321 09/13/19 11:37: Sodium 141, Potassium 3.6, BUN 8, Creatinine 0.76, Glucose 101, Magnesium 2.3, Total Bilirubin 0.2, AST 20, ALT 35, Alkaline Phosphatase 55 Assessment and Plan - Problems (Diagnosis) (1) Symptomatic anemia Status: Acute (2) Iron deficiency Status: Chronic (3) GI bleed Status: Acute (4) Anxiety and depression Status: Chronic - Plan Placed under observation. Case discussed with Dr. Melo. Transfuse 1 unit PRBC for symptomatic anemia. Target hemoglobin >8. Consult to Gastroenterology placed. Outpatient EGD and colonoscopy recommended. Protonix. - Advance Directives Does patient have a Living Will: No Does patient have a Durable POA for Healthcare: No
[2019-09-13] MEDS ORDERED: SODIUM CHLORIDE 0.9% 10ML INJ IV PRN (18:16)
[2019-09-13] MEDS: PANTOPRAZOLE 40 MG INJ IVP SCH (20:52)
[2019-09-13] MEDS ORDERED: POTASSIUM CL SA 10 MEQ TAB PO ONE (22:00)
[2019-09-14 04:03] VITALS: O2SAT 98
[2019-09-14] MEDS: NA CHLORIDE 0.9% 1,000 ML IV SCH (05:30)
[2019-09-14 06:37] LABS: Absolute Lymphocytes (CBC) 0.8 K/uL (0.7-4.9); Hematocrit 30.6 % (36.0-45.0); Lymphocytes % 19.5 % (15.3-44.8); MPV 8.3 fL (7.6-11.3)
[2019-09-14 07:04] LABS: BUN Blood Urea Nitrogen 7 mg/dL (7-18); Bicarbonate 24 mmol/L (21-32); Glucose Level 113 mg/dL (74-106); Potassium 4.3 mmol/L (3.5-5.1); Sodium Level 141 mmol/L (136-145)
[2019-09-14] MEDS: PANTOPRAZOLE 40 MG INJ IVP SCH (08:30)
--- NOTE | 2019-09-14 13:27 | P.DS ---
Admission Date: 09/13/19 Discharge Date: 09/14/19 Disposition: ROUTINE DISCHARGE Discharge Condition: FAIR Reason for Admission: Low hemoglobin and iron level. - Problems (1) Symptomatic anemia Current Visit: Yes Status: Acute (2) Iron deficiency Current Visit: Yes Status: Chronic (3) GI bleed Current Visit: Yes Status: Acute (4) Anxiety and depression Current Visit: Yes Status: Chronic Brief History of Present Illness: 43-year-old woman with prior history of bowel resection, history of chronic iron deficiency anemia, anxiety and depression presented to emergency department with a complaint of generalized weakness, fatigue and dyspnea on exertion. Patient stated her primary care provider referred her to the emergency department due to low blood iron levels. She has received IV iron infusions in the past. She has a left port-A-cath in place for iron infusions. She stated she has allergies to several brands of IV iron but has tolerated Injectafer in the past. She reports occasional blood-stained stools. She was Hemoccult-positive in the ED. Her last colonoscopy was 1 year after her bowel resection which was 2011. She states that the cause for her iron deficiency anemia was not identified. Patient was placed in observation for further treatment of symptomatic anemia. Hospital Course: She was given 2 units PRBC transfusion which brought the hemoglobin up to 10. She feels her symptoms have improved after the blood transfusion. She was evaluated by gastroenterology Dr. Melo recommended small-bowel follow- through to assess how much bowel she has after her bowel resection for bowel obstruction years ago. Patient could not drinking the contrast at this time requested the procedure to be done as an outpatient. Dr. Esqueda has agreed to see patient in the office in the office for arrangement for small-bowel follow- through, EGD and colonoscopy. She is also informed to follow with her PCP for arrangement for IV iron therapy. Vital Signs/Physical Exam: Temp Pulse Resp BP Pulse Ox 98.8 F 77 17 98/58 L 98 09/14/19 12:00 09/14/19 12:00 09/14/19 12:00 09/14/19 12:00 09/14/19 12:00 General: Alert, In no apparent distress, Oriented x3 Respiratory: Clear to auscultation bilaterally, Normal air movement Cardiovascular: Regular rate/rhythm, Normal S1 S2 Gastrointestinal: Soft and benign, Non-distended, No tenderness Laboratory Data at Discharge: WBC 4.1 K/uL (4.3-10.9) L 09/14/19 06:18 Hgb 10.0 g/dL (12.0-15.0) L 09/14/19 06:18 Hct 30.6 % (36.0-45.0) L D 09/14/19 06:18 Plt Count 291 K/uL (152-406) 09/14/19 06:18 PT 11.9 SECONDS (9.5-12.5) 09/13/19 11:37 INR 1.01 09/13/19 11:37 Sodium 141 mmol/L (136-145) 09/14/19 06:18 Potassium 4.3 mmol/L (3.5-5.1) 09/14/19 06:18 BUN 7 mg/dL (7-18) 09/14/19 06:18 Creatinine 0.68 mg/dL (0.55-1.3) 09/14/19 06:18 Glucose 113 mg/dL (74-106) H 09/14/19 06:18 Phosphorus 3.0 mg/dL (2.5-4.9) 09/14/19 06:18 Magnesium 2.3 mg/dL (1.8-2.4) 09/13/19 11:37 Total Bilirubin 0.2 mg/dL (0.2-1.0) 09/13/19 11:37 AST 20 U/L (15-37) 09/13/19 11:37 ALT 35 U/L (12-78) 09/13/19 11:37 Alkaline Phosphatase 55 U/L (45-117) 09/13/19 11:37 Home Medications: Amphet Asp/Amphet/D-Amphet [Adderall 30 mg Tablet] 40 mg PO DAILY 09/13/19 Cyanocobalamin (Vitamin B-12) [Cyanocobalamin Injection] 1,000 mcg IJ SEECOM Fluoxetine HCl [Prozac*] 40 mg PO DAILY 09/13/19 Levothyroxine Sodium 25 mcg PO [id number] 09/13/19 Trazodone [Desyrel*] 50 mg PO BEDTIME PRN 09/13/19 hydrOXYzine HCL [Atarax] 3 tab PO BEDTIME PRN 09/13/19 Pantoprazole [Protonix Tab] 40 mg PO DAILY #30 tab 09/14/19 New Medications: Pantoprazole [Protonix Tab] 40 mg PO DAILY #30 tab
[2019-09-14] MEDS ORDERED: HEPARIN 500 UNIT/5 ML SYR IV PRN (15:21)
[2019-09-22 13:38] VITALS: BP 101/55; TEMP 98.3
[2019-09-24 16:59] LABS: Urine Blood NEGATIVE (NEG); Urine Glucose NEGATIVE (NEG); Urine Protein NEGATIVE (NEG); Urine Specific Gravity 1.015 (1.005-1.030); Urine pH 5.5 (5.0-7.0)
== END 2019-09-14 16:15 | disposition home or self-care (01) ==
LOC: ER 09:39 → ERHOLD 15:58 → 2ND 17:01
PROVIDERS: ADMIT Internal Medicine; ATTEND Internal Medicine
DX: D50.9 Iron deficiency anemia, unspecified (principal); K92.2 Gastrointestinal hemorrhage, unspecified; F41.8 Other specified anxiety disorders; Z88.2 Allergy status to sulfonamides
CPT/HCPCS: 36430; 93005; 85025 ×2; 80048 ×2; 36415; 86900; 83735; 86850; 84703; 84100; 85610; 85044; 86901; 80076; 81003; 84484; 82728; 82746; 82607; 83540; 83880; 84466; 71045; 96374; 99285; J1200; C9113 ×3; J1642; P9016 ×2; J7030 ×4; J1720; G0378 ×3; J2916